=== PATIENT | male | born 1950 | race African-American/Black ===

== ENCOUNTER 2022-11-26 19:56 | Emergency (ER) | payer OTHER, MEDICAID ==
[~2022-11-26] VITALS: Ht 188 cm; Wt 77.1 kg
[2022-11-26 20:22] VITALS: BP 133/59; PULSE 89; RESP 20; TEMP 99.1; O2SAT 98
--- NOTE | 2022-11-26 20:54 | NUR ---
PT AMBULATE TO ROOM 4
--- NOTE | 2022-11-26 21:34 | NUR ---
[facility] CATH INSERTED PT TOLERATED WELL . WILL TRANSFER TO LEG BAG WHEN DISPO
--- NOTE | 2022-11-26 21:48 | NUR ---
Patient discharged with v/s stable. Written and verbal after care instructions given and explained. Patient verbalized understanding. Ambulatory with steady gait. All questions addressed prior to discharge. Advised to follow up with PMD.
== END 2022-11-26 21:48 | disposition home or self-care (01) ==
LOC: MED 19:56
DX: T83.091A Other mechanical complication of indwelling urethral catheter, initial encounter (principal); R33.9 Retention of urine, unspecified; Z98.890 Other specified postprocedural states; Y84.6 Urinary catheterization as the cause of abnormal reaction of the patient, or of later complication, without mention of misadventure at the time of the procedure; Y92.89 Other specified places as the place of occurrence of the external cause
CPT/HCPCS: 51702; 99284